=== PATIENT | female | born 1960 | race Caucasian/White ===

== ENCOUNTER 2023-07-24 10:21 | Emergency (ER) | payer MEDICARE, SELFPAY ==
--- NOTE | ~2023-07-24 | XR_ITS ---
EXAMINATION: XR chest 2V DATE: 07/24/2023 11:00 INDICATION: Shortness of breath and cough TECHNIQUE: PA and lateral views of the chest are obtained. COMPARISON: None available FINDINGS: There are minimal airspace opacities in the medial aspect of the right lung base. There are small pleural effusions. The cardiomediastinal silhouette is normal. There is moderate thoracic spon dylosis. IMPRESSION: 1. Right basilar airspace opacities, consistent with atelectasis versus pneumonia. 2. Small pleural effusions. Reviewed, dictated and finalized at location L. [employer] IMPRESSION: 1. Right basilar airspace opacities, consistent with atelectasis versus pneumon ia. 2. Small pleural effusions.
--- NOTE | 2023-07-24 10:22 | ED.UPPEXIN ---
HPI - Extremity Injury (Upper) General Chief Complaint: Upper Respiratory Infection Stated Complaint: Shortness of Breath/Cough/Body Ache Time Seen by Provider: 07/24/23 10:35 Source: patient, RN notes reviewed and old records reviewed Mode of arrival: ambulatory Limitations: no limitations History of Present Illness HPI narrative: 63-year-old female presents to the [facility] with complaints of shortness of breath, cough, body aches since Friday night, 2 days ago. Reports an home negative COVID test yesterday Patient reports that she see a log grader 2-3 weeks ago and had a completely negative workup with an echo, EKG Has a history diabetes, high blood pressure, high cholesterol Patient is a smoker. Related Data Home Medications Medication Instructions Recorded Confirmed atenolol 25 mg tablet 25 mg PO DAILY 07/24/23 07/24/23 canagliflozin 100 mg tablet 100 mg PO DAILY 07/24/23 07/24/23 (Invokana) cyclobenzaprine 10 mg tablet 10 mg PO BID 07/24/23 07/24/23 lisinopril 10 mg tablet 10 mg PO DAILY 07/24/23 07/24/23 metformin 500 mg tablet 100 mg PO BID 07/24/23 07/24/23 rosuvastatin 10 mg tablet 10 mg PO DAILY 07/24/23 07/24/23 trazodone 50 mg tablet 50 mg PO HS 07/24/23 07/24/23 Allergies Allergy/AdvReac Type Severity Reaction Status Date / Time prednisone Allergy Severe SUICIDAL Verified 11/01/15 11:10 Sulfa (Sulfonamide Allergy Mild Rash Unverified 11/23/08 13:37 Antibiotics) iodine Allergy Unknown RASH, Unverified 11/23/08 13:37 ITCHEY Review of Systems Review of Systems: All systems reviewed & are unremarkable except as noted in HPI and below Constitutional: Constitutional: Reports no additional constitutional complaints Eyes: Eyes: Reports no additional eye complaints ENT: Reports system reviewed and no additional complaints, except as documented Cardiovascular: Cardiovascular: Reports no additional cardiovascular complaints, Denies chest pain and Denies dyspnea Respiratory: Respiratory: Reports as per HPI, Reports chest congestion, Reports cough and Reports dyspnea Gastrointestinal: Gastrointestinal: Reports no additional gastrointestinal complaints, Denies abdominal pain, Denies nausea and Denies vomiting Musculoskeletal: Musculoskeletal: Reports no additional musculoskeletal complaints Integumentary/Breasts: Skin/Breast: Reports system reviewed and no additional complaints, except as docu Neurologic: Reports system reviewed and no additional complaints, except as documented Psychiatric: Psychiatric: Reports no additional psychiatric complaints Allergic/Immunologic: Allergic/Immunologic: Reports no additional allergic/immunologic complaints PMFSH Past Medical History Medical History High cholesterol History of high blood pressure Comments At the time of my signature, I reviewed and agree with the nursing past medical, surgical, social, and family history. There is no relevant family history pertinent to the patient complaint. Exam Const: General: cooperative, healthy appearing, comfortable, no acute distress, well developed, alert and well nourished Nutritional Appearance: well nourished Orientation/consciousness: patient oriented x3 Limitations: no limitations HENMT: Head: normal to inspection Ears: hearing grossly normal bilaterally, external ears normal, TM's normal bilaterally, EAC's normal, mastoids normal and no periauricular adenopathy Face/Nose/Sinus: Normal external nose present, Normal nares present, Normal nasal mucous membranes and turbinates present, normal facial exam and face symmetric Face and sinus: normal facial exam and face symmetric Mouth: Yes Normal oral and palatal mucosa present, Yes lip normal, Yes tongue normal and Yes moist mucous membranes Throat: posterior oropharynx normal, uvula midline and postnasal drainage Eyes: General: appearance normal, both eyes and all related structures Alignment and P
[2023-07-24 10:30] VITALS: BP 95/56; PULSE 83; RESP 16; TEMP 37.3; O2SAT 90
--- NOTE | 2023-07-24 11:00 | ECG_ITS ---
Measurements Intervals Myra Rate: 73 P: 61 DE: 171 QRS: 26 QRSD: 82 T: 78 QT: 375 QTc: 414 Interpretive Statements SINUS RHYTHM OTHERWISE NORMAL ECG NO PREVIOUS ECG AVAILABLE FOR COMPARISON Electronically Signed On 07-24-2023 14:06:33 [employer] by John Carroll M.D.
[2023-07-24 11:17] VITALS: BP 118/65; PULSE 74; RESP 18; O2SAT 93
== END 2023-07-24 11:22 | disposition home or self-care (01) ==
PROVIDERS: Emergency Provider Nurse Practitioner; PCP Internal Medicine
DX: J18.9 Pneumonia, unspecified organism (principal); Z79.899 Other long term (current) drug therapy
CPT/HCPCS: 71046; 87804; 93005; 99213; G0463

== ENCOUNTER 2023-10-14 08:39 | Outpatient (CLI) | payer MEDICARE, SELFPAY ==
--- NOTE | ~2023-10-14 | DEXA_ITS ---
Bone Density Report Name: ANUP SHAIKH Age: 63 Sex: Female Ethnicity: White Date of : 1960 Indication: postmenopausal; screening for osteoporosis; height loss; seizure disorder; hysterectomy; Referring Provider: LILA FERREIRA Study: Bone densitometry was performed. Exam Date: October 14, 2023 Accession number: [id number] Bone Density: Region BMD T-score Z-score Classification AP Spine(L1-L4) 1.063 0.1 1.9 Normal Femoral Neck (Left) 0.775 -0.7 0.9 Normal Total Hip (Left) 0.906 -0.3 1.0 Normal Femoral Neck (Right) 0.751 -0.9 0.6 Normal Total Hip (Right) 0.863 -0.6 0.6 Normal Total Hip Mean 0.885 -0.5 0.8 Normal World Health Organization criteria for BMD impression classify patients as: Normal (T-score at or above -1.0), Osteopenia (T-score between -1.0 and -2.5), or Osteoporosis (T-score at or below -2.5). 10-year Fracture Risk: FRAX not reported because: All T-scores for Spine Total, Hip Total, Femoral Neck at or above -1.0 Clinical Information Provided by Patient: Smokes Has used the following medications: Vitamin D Has the following medical conditions: Any Seizure Disorders, Hysterectomy Patient maximum height was 66 No regular weight bearing exercise Drinks caffeinated beverages Onset of menses at age 10 Number of children 2 Impression: The patient has normal bone mass. The patient has risk factors, including: smoking. Discussion: BONE DENSITY IS ABOVE THE MINIMUM DESIRABLE LEVEL AT ALL SKELETAL SITES TESTED. This patient?s bone mineral density is above the minimum desirable level (T-score -1.0 or better) at all sites measured. The patient should follow a healthful lifestyle (good nutrition with adequate calcium and vitamin D, and appropriate weight-bearing exercise). Follow-Up: Consider repeating this study in 5 years or sooner if there is some new clinical indication. Reported by: CHANDLER on 10/14/2023 9:21:00 AM. Reviewed, dictated and finalized at location ANestor YI
== END 2023-10-14 08:40 | disposition home or self-care (01) ==
PROVIDERS: PCP Internal Medicine; Visit Provider Internal Medicine Endocrinology, Diabetes & Metabolism
DX: Z78.0 Asymptomatic menopausal state (principal); E05.90 Thyrotoxicosis, unspecified without thyrotoxic crisis or storm
CPT/HCPCS: 77080

== ENCOUNTER 2024-05-30 12:32 | Emergency (ER) | payer MEDICARE, SELFPAY ==
--- NOTE | ~2024-05-30 | XR_ITS ---
Clinical Indication: Cough PA and lateral views of the chest: Comparison: 07/24/2023 Findings: The lungs are clear, without evidence of focal consolidation or pleural effusion. Cardiome diastinal silhouette is within normal limits. Bones and soft tissues are unremarkable. Impression: Normal chest. Reviewed, dictated and finalized at location . Impression: Normal chest.
[2024-05-30 12:36] VITALS: BP 115/55; PULSE 64; RESP 18; TEMP 36.9; O2SAT 98
--- NOTE | 2024-05-30 13:35 | ED.GENADULT ---
HPI - General Adult General Chief complaint: Upper Respiratory Infection Stated complaint: fatigue/congestion/fever Source: patient Mode of arrival: ambulatory Limitations: no limitations History of Present Illness HPI narrative: Pt presents for evaluation of sick symptoms for the past week. Her initial symptom was sinus congestion. She has since developed postnasal drainage, a scratchy throat cough and some OSORIO. No fever, chills, nausea, vomiting or diarrhea. 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 She smokes between 08/14-08/12 ppd. She is not taking any medications to assist with her symptoms. Related Data Home Medications Medication Instructions Recorded Confirmed atenolol 25 mg tablet 25 mg PO DAILY 07/24/23 08/12/23 canagliflozin 100 mg tablet 100 mg PO DAILY 07/24/23 08/12/23 (Invokana) cyclobenzaprine 10 mg tablet 10 mg PO BID 07/24/23 08/12/23 lisinopril 10 mg tablet 10 mg PO DAILY 07/24/23 08/12/23 rosuvastatin 10 mg tablet 10 mg PO DAILY 07/24/23 07/24/23 trazodone 50 mg tablet 50 mg PO HS 07/24/23 08/12/23 aspirin 81 mg tablet,delayed 81 mg PO DAILY 08/12/23 08/12/23 release (Adult Low Dose Aspirin) cetirizine 10 mg capsule (Zyrtec) 10 mg PO DAILY PRN 08/12/23 08/12/23 cholecalciferol (vitamin D3) PO 08/12/23 08/12/23 magnesium chloride PO 08/12/23 08/12/23 metformin 500 mg tablet 1,000 mg PO BID 08/12/23 08/12/23 multivitamin (Daily Multi-Vitamin 1 tablet PO DAILY 08/12/23 08/12/23 tablet) vitamin B complex PO 08/12/23 08/12/23 Allergies Allergy/AdvReac Type Severity Reaction Status Date / Time prednisone Allergy Severe SUICIDAL Verified 08/12/23 14:32 Sulfa (Sulfonamide Allergy Mild Rash Verified 08/12/23 14:32 Antibiotics) iodine Allergy Unknown RASH, Verified 08/12/23 14:32 ITCHEY Review of Systems Review of Systems: CONSTITUTIONAL: Denies fever, chills, or sweats. EYES: Denies visual changes, redness, or discharge. ENT:Reports a scratchy throat , sinus congestion, and postnasal drainage. Denies otalgia. CARDIOVASCULAR: Denies chest pain, palpitations, or edema. RESPIRATORY: Reports cough and OSORIO GASTROINTESTINAL: Denies abdominal pain, nausea, vomiting, or diarrhea. GENITOURINARY: Denies dysuria or hematuria. SKIN: Denies rash or itching. MUSCULOSKELETAL: Denies back pain, joint pain, or myalgia. NEUROLOGIC: Denies headache, numbness, dizziness, or weakness. PSYCHIATRIC: Denies anxiety or depression. [facility] Past Medical History Medical History Diabetes High cholesterol History of high blood pressure Surgical History Surgical History No pertinent past surgical history Family History Family History Mother Family history non-contributory Social History Social History Smoking packs per day: 0.3 Smoking cigarettes per day: 6.0 Smoking status: Current every day smoker Alcohol intake: current Alcohol use details: 1 drink per year Substance use: never Living arrangements: with family Gender identity (if verbalized by the patient): Female Exam Narrative: GENERAL: Well-appearing, well-nourished, and in no acute distress. HEAD: Normocephalic, atraumatic. EYES: PERRLA and EOMI. ENT: Nares clear, no rhinorrhea or epistaxis. Mucous membranes moist. Oropharynx without tonsillar hypertrophy exudate or other lesions. Bilateral TMs pearly moss nonbulging NECK: Supple. No adenopathy or masses. No carotid bruits or JVD CHEST: Clear to auscultation. No respiratory distress. No wheezes rales or rhonchi HEART: Regular rate and rhythm. No murmur heard. Normal peripheral pulses. ABDOMEN: Soft, nontender, nondistended, normal active bowel sounds. EXTR
[2024-05-30 13:57] LABS: EDINFLUASCREEN Negative (Negative); EDINFLUBSCREEN Negative (Negative)
== END 2024-05-30 14:12 | disposition home or self-care (01) ==
PROVIDERS: Emergency Provider Nurse Practitioner; PCP Internal Medicine
DX: J06.9 Acute upper respiratory infection, unspecified (principal); F17.210 Nicotine dependence, cigarettes, uncomplicated; E11.9 Type 2 diabetes mellitus without complications; I10 Essential (primary) hypertension
CPT/HCPCS: 71046; 87804; 99213; G0463

== ENCOUNTER 2024-06-04 16:42 | Emergency (ER) | payer MEDICARE, SELFPAY ==
[2024-06-04 16:47] VITALS: BP 143/64; PULSE 66; RESP 18; TEMP 36.9; O2SAT 95
--- NOTE | 2024-06-04 17:15 | ED_ITS ---
HPI - URI/Sore Throat General Chief Complaint: Upper Respiratory Infection Stated Complaint: Shortness of breath Time Seen by Provider: 06/04/24 17:15 Source: patient Mode of arrival: ambulatory Limitations: no limitations History of Present Illness HPI Narrative: 64 yo F presents with c/o cough, chest congestion for 2 wks. Was seen here 1 wk ago, had negative chest x-ray. was given tessalon pearle and taking mucinex DM. Pt c/o SOB with exertion, chest tightness, wheezing. pt is current everyday smoker. Afebrile. All systems reviewed and negative except as noted above. Related Data Home Medications Medication Instructions Recorded Confirmed atenolol 25 mg tablet 25 mg PO DAILY 07/24/23 06/04/24 canagliflozin 100 mg tablet 100 mg PO DAILY 07/24/23 08/12/23 (Invokana) cyclobenzaprine 10 mg tablet 10 mg PO BID 07/24/23 06/04/24 lisinopril 10 mg tablet 10 mg PO DAILY 07/24/23 06/04/24 rosuvastatin 10 mg tablet 10 mg PO DAILY 07/24/23 06/04/24 trazodone 50 mg tablet 50 mg PO HS 07/24/23 06/04/24 aspirin 81 mg tablet,delayed 81 mg PO DAILY 08/12/23 06/04/24 release (Adult Low Dose Aspirin) cetirizine 10 mg capsule (Zyrtec) 10 mg PO DAILY PRN Allergic 08/12/23 06/04/24 Symptoms cholecalciferol (vitamin D3) PO 08/12/23 08/12/23 magnesium chloride PO 08/12/23 08/12/23 metformin 500 mg tablet 1,000 mg PO BID 08/12/23 06/04/24 multivitamin (Daily Multi-Vitamin 1 tablet PO DAILY 08/12/23 08/12/23 tablet) vitamin B complex PO 08/12/23 08/12/23 Allergies Allergy/AdvReac Type Severity Reaction Status Date / Time prednisone Allergy Severe SUICIDAL Verified 06/04/24 17:04 Sulfa (Sulfonamide Allergy Mild Rash Verified 06/04/24 17:04 Antibiotics) iodine Allergy Unknown RASH, Verified 06/04/24 17:04 ITCHEY Review of Systems Review of Systems: CONSTITUTIONAL: Denies fever, chills, or sweats. EYES: Denies visual changes, redness, or discharge. ENT: Denies rhinorrhea, congestion, sore throat, or otalgia. CARDIOVASCULAR: Denies chest pain, palpitations, or edema. RESPIRATORY: Reports cough , chest congestion, dyspnea with exertion. GASTROINTESTINAL: Denies abdominal pain, nausea, vomiting, or diarrhea. GENITOURINARY: Denies dysuria or hematuria. SKIN: Denies rash or itching. MUSCULOSKELETAL: Denies back pain, joint pain, or myalgia. NEUROLOGIC: Denies headache, numbness, or weakness. PSYCHIATRIC: Denies anxiety or depression. All other systems reviewed are negative, except as documented in HPI. [facility] Past Medical History Medical History Diabetes High cholesterol History of high blood pressure Surgical History Surgical History No pertinent past surgical history Family History Family History Mother Family history non-contributory Social History Social History Smoking packs per day: 0.3 Smoking cigarettes per day: 6.0 Smoking status: Current every day smoker Alcohol intake: current Alcohol use details: 1 drink per year Substance use: never Living arrangements: with family Gender identity (if verbalized by the patient): Female Comments At time of signature, agree with nursing past medical, surgical, social and family history. There is no relevant family history pertinent to the presenting complaint. Exam Narrative: GENERAL: This is a well-nourished, well-developed patient, in no apparent distress. HEAD: normocephalic, atraumatic. EYES: PERRL. Sclera clear/white. Vision is grossly intact. EARS: External ears normal, auditory canals clear and without drainage, TMs normal without perforation. Hearing grossly intact. NOSE: External nose normal with no obvious nasal discharge, nares without redness, no rhinorrhea. THROAT: Mucous membranes moist, posterior pharynx clear. NECK: Neck supple, non-tender without lymphadenopathy, masses or thyromegaly. CARDIOVASCULAR: Regular rate and rhythm without murmurs, gallops, or rubs. RESPIRATORY: decreased throughout all lung alfaro, mild expiratory wheeze upper lung alfaro. SKIN: warm, Dry, intact with no suspicious lesions or rash, good texture and turgor. NEURO: awake, alert, and oriented to person, place and time. There were no obvious focal neurologic abnormalities. EXTREMITIES: No joint tenderness, effusion, or edema noted. Course Course [facility] Care: [facility] Visit Vital Signs Vital signs: Vital Signs Temperature 36.9 C 06/04/24 16:47 Pulse Rate 66 06/04/24 16:47 Respiratory Rate 18 06/04/24 16:47 Blood Pressure 143/64 H 06/04/24 16:47 Pulse Oximetry 95 06/04/24 16:47 Oxygen Delivery Room Air 06/04/24 16:47 Temperature 36.9 C 06/04/24 16:47 Pulse Rate 66 06/04/24 16:47 Respiratory Rate 18 06/04/24 16:47 Blood Pressure 143/64 H 06/04/24 16:47 Pulse Oximetry 95 06/04/24 16:47 Oxygen Delivery Room Air 06/04/24 16:47 Reviewed MDM - URI/Sore Throat MDM Narrative Medical decision making narrative: Patient is aware of diagnosis, understands and agrees to treatment plan. Anticipatory guidance given. Patient agrees to follow-up as directed and is aware of reasons to seek care at the emergency department. Portions of this record may have been created with voice recognition software patient had [facility]. Was negative for pneumonia. will treat today with antibiotic due to 2 week duration of symptoms. patient states she is not allergic to prednisone but had bad interaction with her Cymbalta. A Steroid would benefit for her at this time so we will try QVAR. Patient agrees with plan of care. Discharge Plan Discharge Clinical Impression: Acute bronchitis Patient Disposition: Home, Self-Care Condition: Stable Instructions: Antibiotic Form Additional Instructions: Take medications as prescribed. Continue taking [id number] Mucinex as directed on packaging. Take ibuprofen or Tylenol every 6-8 hours as needed for pain. Drink at least 64 oz of water a day. For any worsening of symptoms, difficulty breathing go to the ER. Prescriptions: New Qvar RediHaler 80 mcg/actuation HFA aerosol breath activated 2 inh inhalation Q12H Qty: 10.6 0RF doxycycline hyclate 100 mg capsule 100 mg PO BID 7 Days Qty: 14 0RF benzonatate 200 mg capsule 200 mg PO TID PRN (Reason: cough) Qty: 20 0RF albuterol sulfate 90 mcg/actuation HFA aerosol inhaler 2 puff inhalation Q4-6H PRN (Reason: shortness of breath or wheezing) Qty: 8.5 0RF No Action cyclobenzaprine 10 mg tablet 10 mg PO BID atenolol 25 mg tablet 25 mg PO DAILY Invokana 100 mg tablet 100 mg PO DAILY trazodone 50 mg tablet 50 mg PO HS lisinopril 10 mg tablet 10 mg PO DAILY rosuvastatin 10 mg tablet 10 mg PO DAILY metformin 500 mg tablet 1,000 mg PO BID benzonatate 100 mg capsule 100 - 200 mg PO TID PRN (Reason: cough) Qty: 30 0RF aspirin [Adult Low Dose Aspirin] 81 mg tablet,delayed release (DR/EC) 81 mg PO DAILY Zyrtec 10 mg capsule 10 mg PO DAILY PRN (Reason: Allergic Symptoms) magnesium chloride PO vitamin B complex PO cholecalciferol (vitamin D3) PO multivitamin [Daily Multi-Vitamin] Tablet 1 tablet PO DAILY Follow-up/Referrals: Penny,MD Kirit [Primary Care Provider] - Time of Disposition: 17:58
[2024-06-04] MEDS: IPRATROPIUM 0.5 MG/ALBUTEROL SULFATE 2.5 MG AMPUL.NEB 3 ML INHALATION (17:27)
[2024-06-04 17:58] VITALS: PULSE 76; RESP 24; O2SAT 95
== END 2024-06-04 18:06 | disposition home or self-care (01) ==
PROVIDERS: Emergency Provider Nurse Practitioner Family; PCP Internal Medicine
DX: J20.9 Acute bronchitis, unspecified (principal); F17.210 Nicotine dependence, cigarettes, uncomplicated; E11.9 Type 2 diabetes mellitus without complications; E78.00 Pure hypercholesterolemia, unspecified; I10 Essential (primary) hypertension; Z79.84 Long term (current) use of oral hypoglycemic drugs; Z79.82 Long term (current) use of aspirin
CPT/HCPCS: 99213; G0463

== ENCOUNTER 2024-10-11 10:43 | Emergency (ER) | payer MEDICARE, SELFPAY ==
[2024-10-11 10:46] VITALS: BP 129/59; PULSE 78; RESP 20; TEMP 36.8; O2SAT 100
[2024-10-11 11:01] LABS: EDUAAPPEAR Cloudy; EDUABILI Negative (Negative); EDUABLOOD Trace (Negative); EDUACOLOR1 Yellow; EDUAGLUCOSE Negative (Negative); EDUAKETONE Negative (Negative); EDUALEUKO 1+ (Negative); EDUANITRATE Positive (Negative); EDUAPH 6.5; EDUAPROTEIN 2+ (Negative)
--- NOTE | 2024-10-11 11:01 | ED.GENADULT ---
HPI - General Adult General Chief complaint: Urogenital-Female Stated complaint: poss UTI Source: patient and RN notes reviewed Mode of arrival: ambulatory Limitations: no limitations History of Present Illness HPI narrative: 64-year-old female with history of diabetes presented for complaint of mid lower abdominal pain, dysuria, and urinary frequency. Onset yesterday. Endorses vomiting 2 days ago, none since. denies hematuria, flank pain, constipation, diarrhea, fevers or chills. no meds for symptoms. Related Data Home Medications ?Medication ?Instructions ?Recorded ?Confirmed ?Last Taken ?Type atenolol 25 mg tablet 25 mg PO DAILY 07/24/23 09/01/24 Unknown History canagliflozin 100 mg tablet 100 mg PO DAILY 07/24/23 09/01/24 Unknown History (Invokana) cyclobenzaprine 10 mg tablet 10 mg PO BID 07/24/23 09/01/24 Unknown History lisinopril 10 mg tablet 10 mg PO DAILY 07/24/23 09/01/24 Unknown History rosuvastatin 10 mg tablet 10 mg PO DAILY 07/24/23 09/01/24 Unknown History trazodone 50 mg tablet 50 mg PO HS 07/24/23 09/01/24 Unknown History aspirin 81 mg tablet,delayed 81 mg PO DAILY 08/12/23 09/01/24 Unknown History release (Adult Low Dose Aspirin) cetirizine 10 mg capsule (Zyrtec) 10 mg PO DAILY PRN Allergic 08/12/23 09/01/24 Unknown History Symptoms cholecalciferol (vitamin D3) PO 08/12/23 09/01/24 Unknown History magnesium chloride PO 08/12/23 09/01/24 Unknown History metformin 500 mg tablet 1,000 mg PO BID 08/12/23 09/01/24 Unknown History multivitamin (Daily Multi-Vitamin 1 tablet PO DAILY 08/12/23 09/01/24 Unknown History tablet) vitamin B complex PO 08/12/23 09/01/24 Unknown History Allergies Allergy/AdvReac Type Severity Reaction Status Date / Time prednisone Allergy Severe SUICIDAL Verified 09/01/24 14:40 Sulfa (Sulfonamide Allergy Mild Rash Verified 09/01/24 14:40 Antibiotics) iodine Allergy Unknown RASH, Verified 09/01/24 14:40 ITCHEY doxycycline Allergy Rash Verified 09/01/24 14:40 Review of Systems Review of Systems: CONSTITUTIONAL: Denies body aches, fever, chills, or sweats. CARDIOVASCULAR: Denies chest pain, palpitations, or edema. RESPIRATORY: Denies cough or dyspnea. GASTROINTESTINAL: Denies nausea, vomiting, or diarrhea. GENITOURINARY: Reports dysuria, frequency, urgency, denies hematuria, flank pain SKIN: Denies rash, itching, or wounds. MUSCULOSKELETAL: Denies back pain or myalgia. [facility] Past Medical History Medical History Diabetes High cholesterol History of high blood pressure Surgical History Surgical History No pertinent past surgical history Family History Family History Mother Family history non-contributory Social History Social History Smoking packs per day: 0.3 Smoking cigarettes per day: 6.0 Smoking status: Current every day smoker Alcohol intake: current Alcohol use details: 1 drink per year Substance use: never Living arrangements: with family Gender identity (if verbalized by the patient): Female Comments At time of signature, I have reviewed and agree with nursing past medical, surgical, social and family history unless otherwise noted. Please see nursing chart for further information. There is no relevant family history pertinent to the presenting complaint Exam Narrative: GENERAL: Well-appearing and in no acute distress. HEAD: Normocephalic EYES: EOMI. . ENT: Mucous membranes pink and moist. NECK: Normal AROM. Supple. CHEST: No respiratory distress. Clear to auscultation. HEART: Regular rate and rhythm. ABDOMEN: Soft, mild suprapubic tenderness, nondistended, normal active bowel sounds. No CVA tenderness SKIN: Warm, dry, no rash. NEURO: No focal deficits. Alert and oriented x3. Gait steady. PSYCH: Normal affect. No signs of depression or anxiety. Course Course Emergency Course: Patient is aware of diagnosis, understands and agrees to treatment plan. Anticipatory guidance given. Patient agrees to follow-up as directed and is aware of reasons to seek care at the emergency department. Portions of this record may have been created with voice recognition software Level of Care: [facility] Visit Vital Signs Vital signs: Vital Signs Temperature 98.2 F 10/11/24 10:46 Pulse Rate 78 10/11/24 10:46 Respiratory Rate 20 10/11/24 10:46 Blood Pressure 129/59 L 10/11/24 10:46 Pulse Oximetry 100 10/11/24 10:46 Oxygen Delivery Room Air 10/11/24 10:46 Temperature 98.2 F 10/11/24 10:46 Pulse Rate 78 10/11/24 10:46 Respiratory Rate 20 10/11/24 10:46 Blood Pressure 129/59 L 10/11/24 10:46 Pulse Oximetry 100 10/11/24 10:46 Oxygen Delivery Room Air 10/11/24 10:46 Reviewed Medical Decision Making MDM Narrative Medical decision making narrative: Discussed physical exam findings, will culture urine. Advised supportive measures and signs/symptoms to go to the ER. Pt is appropriate for outpt treatment and f/u. Differential Diagnosis Differential Diagnosis: UTI, cystitis, vaginitis, nephrolithiasis Vital Signs Vital Signs: Vital Signs Temperature 98.2 F 10/11/24 10:46 Pulse Rate 78 10/11/24 10:46 Respiratory Rate 20 10/11/24 10:46 Blood Pressure 129/59 L 10/11/24 10:46 Pulse Oximetry 100 10/11/24 10:46 Oxygen Delivery Room Air 10/11/24 10:46 Temperature 98.2 F 10/11/24 10:46 Pulse Rate 78 10/11/24 10:46 Respiratory Rate 20 10/11/24 10:46 Blood Pressure 129/59 L 10/11/24 10:46 Pulse Oximetry 100 10/11/24 10:46 Oxygen Delivery Room Air 10/11/24 10:46 Lab Data Labs: Lab Results 10/11/24 Range/Units 10:58 POC Urine Color Yellow POC Urine Clarity Cloudy POC Urine pH 6.5 POC Ur Specif Morton 1.020 POC Urine Protein 2+ (Negative) POC Ur Glucose (UA) Negative (Negative) POC Urine Ketones Negative (Negative) POC Urine Blood Trace (Negative) POC Urine Nitrite Positive (Negative) POC Urine Bilirubin Negative (Negative) POC Urine Urobilinogen 1.0 POC U Leukocyte Esteras 1+ (Negative) Discharge Plan Discharge Clinical Impression: Urinary tract infection Patient Disposition: Home, Self-Care Condition: Stable Instructions: Antibiotic Form, Urinary Tract Infection in Women (ED) Additional Instructions: Take the antibiotic as prescribed The urine will be sent of for a culture to identify what type of bacteria is causing your infection. If the culture shows that the antibiotic will not get rid of your infection, you will be notified and a new antibiotic will be called in for you. Increase water intake you will need to follow up with your PCP, call to schedule an appointment. Go to the ER for any worsening symptoms or concerns Patient Language: Mongolian Prescriptions: New nitrofurantoin monohyd/m-cryst [Macrobid] 100 mg capsule 100 mg PO Q12H 5 Days Qty: 10 0RF Rx Instructions: must administer with a meal/food No Action cyclobenzaprine 10 mg tablet 10 mg PO BID atenolol 25 mg tablet 25 mg PO DAILY Invokana 100 mg tablet 100 mg PO DAILY trazodone 50 mg tablet 50 mg PO HS lisinopril 10 mg tablet 10 mg PO DAILY rosuvastatin 10 mg tablet 10 mg PO DAILY metformin 500 mg tablet 1,000 mg PO BID Qvar RediHaler 80 mcg/actuation HFA aerosol breath activated 2 inh inhalation Q12H Qty: 10.6 0RF albuterol sulfate 90 mcg/actuation HFA aerosol inhaler 2 puff inhalation Q4-6H PRN (Reason: shortness of breath or wheezing) Qty: 8.5 0RF aspirin [Adult Low Dose Aspirin] 81 mg tablet,delayed release (DR/EC) 81 mg PO DAILY Zyrtec 10 mg capsule 10 mg PO DAILY PRN (Reason: Allergic Symptoms) magnesium chloride PO vitamin B complex PO cholecalciferol (vitamin D3) PO multivitamin [Daily Multi-Vitamin] Tablet 1 tablet PO DAILY Follow-up/Referrals: Penny,MD Kirit [Primary Care Provider] -
== END 2024-10-11 11:14 | disposition home or self-care (01) ==
PROVIDERS: Emergency Provider Nurse Practitioner Family; PCP Internal Medicine
DX: N39.0 Urinary tract infection, site not specified (principal); B96.20 Unspecified Escherichia coli [E. coli] as the cause of diseases classified elsewhere; B96.1 Klebsiella pneumoniae [K. pneumoniae] as the cause of diseases classified elsewhere; F17.210 Nicotine dependence, cigarettes, uncomplicated; E11.9 Type 2 diabetes mellitus without complications; Z79.84 Long term (current) use of oral hypoglycemic drugs; E78.00 Pure hypercholesterolemia, unspecified; I10 Essential (primary) hypertension; Z79.82 Long term (current) use of aspirin
CPT/HCPCS: 81003; 87086; 87186; 99213; G0463

== ENCOUNTER 2024-10-12 16:28 | Emergency (ER) | payer MEDICARE, SELFPAY ==
[2024-10-12 16:32] VITALS: BP 139/62; PULSE 89; RESP 20; TEMP 37.4; O2SAT 95
[2024-10-12 16:57] LABS: EDCOVIDSCREEN Negative (Negative); EDINFLUASCREEN Negative (Negative); EDINFLUBSCREEN Negative (Negative)
--- NOTE | 2024-10-12 17:12 | ED.URI ---
HPI - URI/Sore Throat General Chief Complaint: Upper Respiratory Infection Stated Complaint: upper respiratory Time Seen by Provider: 10/12/24 17:00 Source: patient, family, RN notes reviewed and old records reviewed Mode of arrival: ambulatory Limitations: no limitations History of Present Illness HPI Narrative: 64 year old female accompanied by with complaints of cough, body aches since last night. Patient states it feels like something on chest with movement and chest feels congested. Patient was seen yesterday for UTI and was placed on Macrobid. Patient reports that she thinks urinary symptoms are better. MD elicited complaint: cough, rhinorrhea and nasal congestion Pertinent past history: pneumonia and other (bronchitis) Onset (ago): day(s) (since last night) Consistency: progressively worsening Severity: moderate Pain scale (0-10): 5 Able to tolerate fluids by mouth: Yes Treatments prior to arrival: other (on Macrobid for UTI) Related Data Home Medications ?Medication ?Instructions ?Recorded ?Confirmed ?Last Taken ?Type atenolol 25 mg tablet 25 mg PO DAILY 07/24/23 09/01/24 Unknown History cyclobenzaprine 10 mg tablet 10 mg PO BID 07/24/23 09/01/24 Unknown History lisinopril 10 mg tablet 10 mg PO DAILY 07/24/23 09/01/24 Unknown History rosuvastatin 10 mg tablet 10 mg PO DAILY 07/24/23 09/01/24 Unknown History trazodone 50 mg tablet 50 mg PO HS 07/24/23 09/01/24 Unknown History aspirin 81 mg tablet,delayed 81 mg PO DAILY 08/12/23 09/01/24 Unknown History release (Adult Low Dose Aspirin) cholecalciferol (vitamin D3) PO 08/12/23 09/01/24 Unknown History magnesium chloride PO 08/12/23 09/01/24 Unknown History metformin 500 mg tablet 1,000 mg PO BID 08/12/23 09/01/24 Unknown History multivitamin (Daily Multi-Vitamin 1 tablet PO DAILY 08/12/23 09/01/24 Unknown History tablet) vitamin B complex PO 08/12/23 09/01/24 Unknown History Allergies Allergy/AdvReac Type Severity Reaction Status Date / Time prednisone Allergy Severe SUICIDAL Verified 09/01/24 14:40 Sulfa (Sulfonamide Allergy Mild Rash Verified 09/01/24 14:40 Antibiotics) iodine Allergy Unknown RASH, Verified 09/01/24 14:40 ITCHEY doxycycline Allergy Rash Verified 09/01/24 14:40 Review of Systems Review of Systems: CONSTITUTIONAL: Reports malaise, chills, sweats, low grade fevers EYES: Denies visual changes, redness, or discharge. ENT: Reports rhinorrhea, congestion, sinus pain,no otalgia and no sore throat. CARDIOVASCULAR: Denies chest pain, palpitations, or edema. RESPIRATORY: Reports cough.?states some dyspnea with exertion GASTROINTESTINAL: Denies abdominal pain, nausea, vomiting, diarrhea SKIN: Denies rash or itching. MUSCULOSKELETAL: Reports myalgia. NEUROLOGIC: Denies headache. All systems reviewed & are unremarkable except as noted in HPI and below PMFSH Past Medical History Medical History Chronic back pain Bronchitis Pneumonia Diabetes High cholesterol History of high blood pressure Surgical History Surgical History H/O tubal ligation History of hysterectomy Family History Family History Mother Family history non-contributory Social History Social History Smoking packs per day: 0.3 Smoking cigarettes per day: 6.0 Smoking status: Current every day smoker Alcohol intake: current Alcohol use details: 1 drink per year Substance use: never Living arrangements: with family Gender identity (if verbalized by the patient): Female Comments At time of signature, agree with nursing past medical, surgical, social and family history. There is no relevant family history pertinent to the presenting complaint Exam Narrative: GENERAL: ill-appearing, well-nourished, and in no acute distress. HEAD: Normocephalic EYES: PERRLA, conjunctivae clear ENT: Nares clear, turbinates edematous and erythematous, clear discharge. Mucous membranes moist. TM pearly moss with dull light reflex bilaterally; no tragal tenderness. Oropharynx erythematous without lesions. Tonsils not present and throat without exudate, no drooling, no hoarseness, no trismus, uvula midline.post nasal drainage NECK: Supple. No lymphadenopathy CHEST: crackles to bases on auscultation, breath sounds equal. No wheezing, rhonchi, +rales, no stridor. No respiratory distress, speaks in full sentences.cough present SAO2 95% on room air HEART: Regular rate and rhythm. No murmur heard. SKIN: Warm, dry, no rash. NEURO: Alert and oriented x3. PSYCH: Normal mood and affect Course Course Emergency Course: Patient is aware of diagnosis, understands and agrees to treatment plan.? Anticipatory guidance given.? Patient agrees to follow-up as directed and is aware of reasons to seek care at the emergency department. Portions of this record may have been created with voice recognition software Level of Care: [facility] Visit Vital Signs Vital signs: Vital Signs Temperature 37.4 C 10/12/24 16:32 Pulse Rate 89 10/12/24 16:32 Respiratory Rate 20 10/12/24 16:32 Blood Pressure 139/62 10/12/24 16:32 Pulse Oximetry 95 10/12/24 16:32 Oxygen Delivery Room Air 10/12/24 16:32 Temperature 37.4 C 10/12/24 16:32 Pulse Rate 89 10/12/24 16:32 Respiratory Rate 20 10/12/24 16:32 Blood Pressure 139/62 10/12/24 16:32 Pulse Oximetry 95 10/12/24 16:32 Oxygen Delivery Room Air 10/12/24 16:32 Reviewed MDM - URI/Sore Throat MDM Narrative Medical decision making narrative: Differential diagnosis considered: Matos virus, strep pharyngitis, allergic rhinitis, upper respiratory tract infection, sinusitis, rhinosinusitis, nasopharyngitis. viral pharyngitis, otitis media, otitis externa, pneumonia, bronchitis, viral cough syndrome, viral syndrome, and influenza.? Exam findings show no acute concerns or changes; patient is non-toxic appearing and is in no distress.? Patient is appropriate for outpatient treatment and follow-up. Differential Diagnosis Differential diagnosis: Likely upper respiratory infection, viral infection, bronchitis, influenza and other (COVID, pneumonia, acute cough) Medical Records Attestation: I reviewed the patient's medical records. Lab Data Attestation: I reviewed the patient's lab results. Lab results narrative: influenza A negative, Influenza B negative, COVID antigen negarive Labs: Lab Results 10/12/24 Range/Units 16:55 POC Influenza A Ag Negative (Negative) POC Influenza B Ag Negative (Negative) POC SARS CoV-2 Ag Negative (Negative) reviewed Imaging Data Attestation: I personally reviewed and interpreted this imaging study as follows: My impression: atelectasis at left lung base Radiologist's impression: [facility] [address] [place] [address] XRay Report Signed Patient: Lucrecia Oswald : 1960 MR#: [id number] Age: 64 Acct:[id number] Loc: [facility] ADM Date: 10/12/24Attending Dr: Ordering Physician: Abimbola Silva APRN Date of Service: 10/12/24 Procedure(s): XR chest 2V Accession Number(s): [id number] cc: Abimbola Silva APRN~ EXAMINATION: XR chest 2V DATE: 10/12/2024 17:10 INDICATION: Cough and congestion. TECHNIQUE: Frontal and lateral views of the chest were obtained. COMPARISON: Chest 2 views 05/30/2024 FINDINGS: There is mild atelectasis at left lung base. No pleural effusion or pneumothorax. The heart size is normal. IMPRESSION: 1. Mild atelectasis at left lung base. Reviewed, dictated and finalized at location A. NISHER Please be advised this is a medical document. It is intended for [id number] communication. It is written in medical language and may contain unfamiliar abbreviations or verbiage. Medical documents are intended to carry relevant information, facts as evident, and the clinical opinion of the practitioner at the time of the encounter. This report may have been done utilizing a voice recognition system. Attempts have been made to correct errors. However, there may be uncorrected grammatical, spelling, and recognition errors present. The file time of this note does not necessarily represent the time of service. Dictated By: Satinder Bellamy MD 10/12/24 1713 Signed By: <Electronically signed by Satinder Bellamy MD in OV> Critical Care Time Critical Care Time Critical Care Time: No Discharge Plan Discharge Clinical Impression: Acute bronchitis Qualifiers: Bronchitis organism: unspecified organism Qualified Code(s): J20.9 - Acute bronchitis, unspecified Patient Disposition: Home, Self-Care Condition: Stable Instructions: Antibiotic Form, Azithromycin (By mouth) Additional Instructions: Increase fluids especially juices and water [id number] cough and cold medicine of your choice for your symptoms Zyrtec,Claritin or Linda daily Continue your inhaler/nebulizer as directed Steroids as directed--take with food heat to the face 20-30 minutes 4-6 times a day for pain Salt water gargles, throat lozenges or throat sprays as desired Antibiotic as directed--finished the medication If your symptoms persist, change or worsen significantly before you can contact your personal physician then please, without delay, go to the emergency department for further evaluation. Follow-up with PCP in 7-10 days or sooner if needed Follow up with PCP soon in regards to your blood pressure which is elevated above threshold for referral. Blood pressure above 120/80 may indicate pre-hypertension. 139/62 Patient Language: Cook Islander Prescriptions: New albuterol sulfate [Ventolin HFA] 90 mcg/actuation HFA aerosol inhaler 2 puff inhalation QID PRN (Reason: shortness of breath or wheezing) Qty: 6.7 0RF prednisone 20 mg tablet 40 mg PO DAILY 5 Days Qty: 10 0RF azithromycin 250 mg tablet See Rx Instructions .ROUTE .COMPLEX Qty: 6 0RF Rx Instructions: For 250 mg dose pack: take 500 mg today (day 1), then 250 mg for 4 days (days 2-5) No Action cyclobenzaprine 10 mg tablet 10 mg PO BID atenolol 25 mg tablet 25 mg PO DAILY trazodone 50 mg tablet 50 mg PO HS lisinopril 10 mg tablet 10 mg PO DAILY rosuvastatin 10 mg tablet 10 mg PO DAILY metformin 500 mg tablet 1,000 mg PO BID Qvar RediHaler 80 mcg/actuation HFA aerosol breath activated 2 inh inhalation Q12H Qty: 10.6 0RF nitrofurantoin monohyd/m-cryst [Macrobid] 100 mg capsule 100 mg PO Q12H 5 Days Qty: 10 0RF Rx Instructions: must administer with a meal/food aspirin [Adult Low Dose Aspirin] 81 mg tablet,delayed release (DR/EC) 81 mg PO DAILY magnesium chloride PO vitamin B complex PO cholecalciferol (vitamin D3) PO multivitamin [Daily Multi-Vitamin] Tablet 1 tablet PO DAILY Follow-up/Referrals: PHYSICIAN NOT ON STAFF,NONSTAFF [Primary Care Provider] - Stand Alone Forms: Work/School Release IP Time of Disposition: 17:42 Quality Cassandra Coma Scale Eyes: Open Verbal: Oriented and Alert Motor: Follows Commands Brave Coma Total Score: 15
== END 2024-10-12 17:49 | disposition home or self-care (01) ==
PROVIDERS: Emergency Provider Registered Nurse
DX: J20.9 Acute bronchitis, unspecified (principal); E11.9 Type 2 diabetes mellitus without complications; E78.00 Pure hypercholesterolemia, unspecified; F17.210 Nicotine dependence, cigarettes, uncomplicated; Z20.822 Contact with and (suspected) exposure to COVID-19
CPT/HCPCS: 71046; 87426; 87804; 99213; G0463

== ENCOUNTER 2025-02-07 10:20 | Emergency (ER) | payer MEDICARE, SELFPAY ==
[2025-02-07 10:26] VITALS: BP 124/60; PULSE 70; RESP 20; TEMP 36.7; O2SAT 96
--- NOTE | 2025-02-07 11:12 | ED.URI ---
HPI - URI/Sore Throat General Chief Complaint: Upper Respiratory Infection Stated Complaint: Sore Throat/Eye Problem Time Seen by Provider: 02/07/25 11:12 Source: patient and RN notes reviewed Mode of arrival: ambulatory Limitations: no limitations History of Present Illness HPI Narrative: 64-year-old female presents with concern for nasal congestion, drainage, sore throat, swollen glands, ear pressure and runny nose. She reports symptoms started more than a week ago, she has chronic sinus problems. She reports today she woke up with her right eye red, draining and matted. Reports her left eye is beginning to be that way. She takes Tylenol and Mucinex. MD elicited complaint: nasal congestion Related Data Home Medications ?Medication ?Instructions ?Recorded ?Confirmed ?Last Taken ?Type atenolol 25 mg tablet 25 mg PO DAILY 07/24/23 09/01/24 Unknown History cyclobenzaprine 10 mg tablet 10 mg PO BID 07/24/23 09/01/24 Unknown History lisinopril 10 mg tablet 10 mg PO DAILY 07/24/23 09/01/24 Unknown History rosuvastatin 10 mg tablet 10 mg PO DAILY 07/24/23 09/01/24 Unknown History trazodone 50 mg tablet 50 mg PO HS 07/24/23 09/01/24 Unknown History aspirin 81 mg tablet,delayed 81 mg PO DAILY 08/12/23 09/01/24 Unknown History release (Adult Low Dose Aspirin) cholecalciferol (vitamin D3) PO 08/12/23 09/01/24 Unknown History magnesium chloride PO 08/12/23 09/01/24 Unknown History metformin 500 mg tablet 1,000 mg PO BID 08/12/23 09/01/24 Unknown History multivitamin (Daily Multi-Vitamin 1 tablet PO DAILY 08/12/23 09/01/24 Unknown History tablet) vitamin B complex PO 08/12/23 09/01/24 Unknown History Allergies Allergy/AdvReac Type Severity Reaction Status Date / Time prednisone Allergy Severe SUICIDAL Verified 09/01/24 14:40 Sulfa (Sulfonamide Allergy Mild Rash Verified 09/01/24 14:40 Antibiotics) iodine Allergy Unknown RASH, Verified 09/01/24 14:40 ITCHEY doxycycline Allergy Rash Verified 09/01/24 14:40 Review of Systems Review of Systems: CONSTITUTIONAL: Denies malaise, chills, sweats, or fever. EYES: Denies visual changes. Reports bilateral redness, itchiness, discharge worse on the right ENT: Reports rhinorrhea, congestion, sinus pain, otalgia and sore throat. CARDIOVASCULAR: Denies chest pain, palpitations, or edema. RESPIRATORY: Reports cough. Denies dyspnea. GASTROINTESTINAL: Denies abdominal pain, nausea, vomiting, diarrhea SKIN: Denies rash or itching. MUSCULOSKELETAL: Denies myalgia. NEUROLOGIC: Denies headache. All systems reviewed & are unremarkable except as noted in HPI and below PMFSH Past Medical History Medical History Chronic back pain Bronchitis Pneumonia Diabetes High cholesterol History of high blood pressure Surgical History Surgical History H/O tubal ligation History of hysterectomy Family History Family History Mother Family history non-contributory Social History Social History Smoking packs per day: 0.3 Smoking cigarettes per day: 6.0 Smoking status: Current every day smoker Alcohol intake: current Alcohol use details: 1 drink per year Substance use: never Living arrangements: with family Gender identity (if verbalized by the patient): Female Comments At time of signature, agree with nursing past medical, surgical, social and family history. There is no relevant family history pertinent to the presenting complaint Exam Narrative: GENERAL: Well-appearing, well-nourished, and in no acute distress. HEAD: Normocephalic EYES: PERRLA, right sclera and conjunctiva injected with watery drainage noted, left mildly injected ENT: Nares clear, turbinates edematous and erythematous. Mucous membranes moist. TM pearly moss with dull light reflex bilaterally; no tragal tenderness. Oropharynx not erythematous without lesions. Tonsils not enlarged and without exudate, no drooling, no hoarseness, no trismus, uvula midline. NECK: Supple. No lymphadenopathy CHEST: Clear to auscultation, breath sounds equal. No wheezing, rhonchi, rales, or stridor. No respiratory distress, speaks in full sentences. HEART: Regular rate and rhythm. No murmur heard. SKIN: Warm, dry, no rash. NEURO: Alert and oriented x3. PSYCH: Normal mood and affect Course Course Emergency Course: Patient is aware of diagnosis, understands and agrees to treatment plan. Anticipatory guidance given. Patient agrees to follow-up as directed and is aware of reasons to seek care at the emergency department. Portions of this record may have been created with voice recognition software Level of Care: Express Care Visit Vital Signs Vital signs: Vital Signs Temperature 98.1 F 02/07/25 10:26 Pulse Rate 70 02/07/25 10:26 Respiratory Rate 20 02/07/25 10:26 Blood Pressure 124/60 02/07/25 10:26 Pulse Oximetry 96 02/07/25 10:26 Oxygen Delivery Room Air 02/07/25 10:26 Temperature 98.1 F 02/07/25 10:26 Pulse Rate 70 02/07/25 10:26 Respiratory Rate 20 02/07/25 10:26 Blood Pressure 124/60 02/07/25 10:26 Pulse Oximetry 96 02/07/25 10:26 Oxygen Delivery Room Air 02/07/25 10:26 Reviewed. MDM - URI/Sore Throat MDM Narrative Medical decision making narrative: Differential diagnosis considered: Matos virus, strep pharyngitis, allergic rhinitis, upper respiratory tract infection, sinusitis, rhinosinusitis, nasopharyngitis. viral pharyngitis, otitis media, otitis externa, pneumonia, bronchitis, viral cough syndrome, viral syndrome, and influenza. Exam findings show no acute concerns or changes; patient is non-toxic appearing and is in no distress. Patient is appropriate for outpatient treatment and follow-up. Lab Data Attestation: I reviewed the patient's lab results. Critical Care Time Critical Care Time Critical Care Time: No Discharge Plan Discharge Clinical Impression: Sinusitis, Conjunctivitis Patient Disposition: Home Condition: Stable Instructions: Antibiotic Form, Sinusitis (ED) Additional Instructions: Take medication as directed Nonprescription pain medications, such as acetaminophen (eg, Tylenol) or ibuprofen (eg, Motrin, Advil), are recommended for pain. Flushing the nose and sinuses with a saline solution several times per day has been proven to decrease pain associated with congestion and shorten the duration of symptoms. Nasal steroids (such as Flonase, 2 sprays in each nostril daily) can help to reduce swelling inside the nose, usually within two to three days. These drugs have few side effects and relieve symptoms in most people. Oral decongestants (pseudoephedrine and phenylephrine) may be helpful if you have associated symptoms of ear pain or fullness. Nasal decongestant sprays, including oxymetazoline (Afrin) and phenylephrine (Harinder-Synephrine), can be used to temporarily treat congestion. However, these sprays should not be used for more than two to three days due to the risk of rebound congestion (when the nose becomes congested constantly unless the medication is used repeatedly), possible addiction, and long-term consequences of frequent use, including persistent nasal dryness and crusting, which is very difficult to treat once it has developed. Medications to thin secretions (such as guaifenesin) may help to clear mucus. Please follow-up with your primary care doctor in the next 1-2 days. If you cannot follow-up with your primary care doctor please go to the ED for any urgent issues. If you have any worsening of symptoms or any other concerns please go to the ED immediately. Patient Language: Ukrainian Prescriptions: New pseudoephedrine HCl [12 Hour Decongestant] 120 mg tablet extended release 120 mg PO Q12H PRN (Reason: nasal congestion) Qty: 20 0RF amoxicillin-pot clavulanate 875-125 mg tablet 1 tablet PO Q12H 10 Days Qty: 20 0RF polymyxin B sulf-trimethoprim 10,000 unit- 1 mg/mL drops 1 drp EACH EYE Q3H 7 Days Qty: 10 0RF Rx Instructions: while awake; do not exceed 6 doses in 24 hours No Action cyclobenzaprine 10 mg tablet 10 mg PO BID atenolol 25 mg tablet 25 mg PO DAILY trazodone 50 mg tablet 50 mg PO HS lisinopril 10 mg tablet 10 mg PO DAILY rosuvastatin 10 mg tablet 10 mg PO DAILY metformin 500 mg tablet 1,000 mg PO BID Qvar RediHaler 80 mcg/actuation HFA aerosol breath activated 2 inh inhalation Q12H Qty: 10.6 0RF albuterol sulfate [Ventolin HFA] 90 mcg/actuation HFA aerosol inhaler 2 puff inhalation QID PRN (Reason: shortness of breath or wheezing) Qty: 6.7 0RF aspirin [Adult Low Dose Aspirin] 81 mg tablet,delayed release (DR/EC) 81 mg PO DAILY magnesium chloride PO vitamin B complex PO cholecalciferol (vitamin D3) PO multivitamin [Daily Multi-Vitamin] Tablet 1 tablet PO DAILY Follow-up/Referrals: Patti Gagnon, RN [Primary Care Provider] - Stand Alone Forms: Work/School Release IP Time of Disposition: 11:19
== END 2025-02-07 11:29 | disposition home or self-care (01) ==
PROVIDERS: Emergency Provider Nurse Practitioner
DX: J32.9 Chronic sinusitis, unspecified (principal); H10.9 Unspecified conjunctivitis; E11.9 Type 2 diabetes mellitus without complications; F17.210 Nicotine dependence, cigarettes, uncomplicated
CPT/HCPCS: 99213; G0463

== ENCOUNTER 2025-06-07 10:46 | Emergency (ER) | payer MEDICARE, SELFPAY ==
[2025-06-07 10:51] VITALS: BP 96/69; PULSE 81; RESP 16; TEMP 36.9; O2SAT 96
[2025-06-07 12:07] LABS: EDSTREPNEGPOS1 Negative (Negative)
[2025-06-07 12:20] LABS: EDCOVIDSCREEN Negative (Negative); EDINFLUASCREEN Negative (Negative); EDINFLUBSCREEN Negative (Negative)
--- OUTSIDE RECORDS SUMMARY | 2025-06-07 12:30 | XMS_ITS | Clinical Summary ---
Author Organization [facility] Address [address] [place] [address] Care Team Providers Care Forest Management Professor Name Role Phone Kirit Francis MD Primary Care Provider [phone] [facility],non-owned Affiliates and Associated Physician Practices is amultiple site organization consisting of ambulatory clinics and hospital sitesin [place], [place], [place] and [place]. This disclosure is being madepursuant to the Care Everywhere program and may not contain all information available regarding this patient. Last updated 18.[facility] Allergies Active Allergy Reactions Criticality Noted Date Comments Contrast-Iodinated Agents For Ct/Other Urticaria 06/12/2015 Prednisone Psychiatric 06/12/2015 Sulfa Drugs Urticaria 06/12/2015 Medications * Be aware that medications may not be up to date on this document. Alwaysverify current medications with the patient. vitamin D, ergocalciferol, (DRISDOL) 02005 UNITS capsule Take 50,000 Units by mouth every 7 days 2 03/27/2015 Active buPROPion SR 12hr (WELLBUTRIN-SR) 150 MG tablet Take 150 mg by mouth 3 times daily 2 06/05/2015 Active clonazePAM (KLONOPIN) 0.5 MG tablet Take 0.25 mg by mouth 3 times daily 06/06/2015 Active DULoxetine (CYMBALTA) 60 MG capsule Take 60 mg by mouth once daily 1 04/03/2015 Active lisinopril-hydr ochlorothiazide (PRINZIDE; ZESTORETIC) 20-12.5 MG tablet Take 1 Tab by mouth once daily 3 06/05/2015 Active metFORMIN (GLUCOPHAGE) 500 MG tablet Take 1,000 mg by mouth 2 times daily with morning and evening meal MORNING AND EVENING MEALS 3 05/14/2015 Active CRESTOR 5 MG tablet Take 5 mg by mouth once daily 3 06/04/2015 Active busPIRone (BUSPAR) 15 MG tablet Take 15 mg by mouth 2 times daily Active tiZANidine (ZANAFLEX) 2 MG tablet Take 2 mg by mouth at bedtime 5 08/30/2015 Active traZODone (DESYREL) 50 MG tablet Take 50 mg by mouth at bedtime 09/10/2015 Active LYRICA 25 MG capsule TAKE 1 CAPSULE BY MOUTH EVERY MORNING FOR 14 DAYS THEN INCREASE TO 2 CAPSULES BY MOUTH EVERY MORNING 0 03/01/2016 Active carisoprodol (SOMA) 350 MG tablet TAKE 1 TABLET BY MOUTH AT BEDTIME. DO NOT TAKE WITH ZANAFLEX (TIZANIDINE) 0 02/27/2016 Active Active Problems Problem Noted Date Diagnosed Date Chronic painful diabetic neuropathy 04/07/2016 Family History Medical History Relation Name Comments Alcohol abuse Father Cancer Father kidney Dementia Father Heart Failure Father 3 Hypertension Father Stroke Father Drug Abuse Mother Heart Failure Mother Hypertension Mother Cancer Sister breast Hypertension Sister Relation Name Status Comments Father Mother Sister Social History Tobacco Use Types Packs/Day Years Used Date Smoking Tobacco: Every Day Cigarettes 0.5 42 Smokeless Tobacco: Never Alcohol Use Standard Drinks/Week Comments No 0 (1 standard drink = 0.6 oz pur e alcohol) Comments Unknown Sex and Gender Information Value Date Recorded Sex Assigned at Not on file Legal Sex Female 1:13 PM CDT Gender Identity Not on file Sexual Orientation Not on file Last Filed Vital Signs Vital Sign Reading Time Taken Comments Blood Pressure 126/74 03/13/2016 1:49 PM CDT Pulse - - Temperature - - Respiratory Rate - - Oxygen Saturation - - Inhaled Oxygen Concentration - - Weight 79.4 kg (175 lb) 03/13/2016 1:49 PM CDT Height 167.6 cm (5' 6) 03/13/2016 1:49 PM CDT Body Mass Index 28.25 03/13/2016 1:49 PM CDT Plan of Treatment Health Maintenance Due Date Last Done Comments BONE DENSITY TESTING 1960 COLOGUARD (AGES 45-75) - COL ON CA SCREENING 1958 COLON MONITORING 1958 COLONOSCOPY - COLON CA SCREENING 1958 CT COLONOGRAPHY - COLON CA SCREENING 1958 Colorectal Cancer Screening 1958 FIT - COLON CA SCREENING 1958 FLEX SIG - COLON CA SCREENING 1958 MAMMOGRAM 1958 HEPATITIS C SCREENING 04/25/1976 DTAP/TDAP/TD VACCINES (1 - Tdap) 1977 PNEUMOCOCCAL VACCINE 50+ (1 of 2 - PCV) 1977 ZOSTER VACCINE (1 of 2) 2008 Respiratory Syncytial Virus (RSV) Vaccine Pt: or over 60 yrs (1 - Risk 60-74 years 1-dose series) 2018 DEPRESSION SCREENING 08/11/2024 COVID-19 VACCINE (1 - 2023-2 5 season) 2025 INFLUENZA VACCINE (#1) 2025 HEPATITIS B VACCINE Aged Out No longe r eligible based on patient's age to complete this topic HIB VACCINE Aged Out No longer eligi ble based on patient's age to complete this topic HPV VACCINE Aged Out No longer eligi ble based on patient's age to complete this topic MENINGOCOCCAL (Group B) VACC INE SHARED DECISION-MAKING Aged Out No longer eligibl e based on patient's age to complete this topic MENINGOCOCCAL GROUPS A/C/Y/W VACCINE Aged Out No longer eligible b ased on patient's age to complete this topic Insurance [facility] Care Teams Forest Management Professor Relationship Specialty Start Date End Date Kirit Francis MD [address] [place] [address] PCP - General Internal Medicine 06/12/15
--- OUTSIDE RECORDS SUMMARY | 2025-06-07 12:30 | XMS_ITS | Patient Health Record ---
Author Organization [facility] Address [address] [facility] [address] [place] [address] Care Team Providers Care Shift Boss Name Role Phone Charles Lucas Unavailable [phone] Dominguez Menendezime Unavailable [phone] Allergies Allergen (clinical drug ingredient) Drug/Non Drug Allergy documented on EMR Reaction Allergy Type Onset Date Status primidone Mysoline Unknown Drug Allergy Active Substance with sulfonamide structure and antibacterial mechanism of action (substance) Sulfa Antibiotics Unknown Drug Allergy Active Reason For Referral No Information Medications Medication SIG (Take, Route, Frequency, Duration) Notes Start Date End Date Status Varenicline Tartrate 1 MG Tablet Take 1 tablet by mouth twice daily; Duration: 30 Active Magnesium - Capsule as directed Orally Active DULoxetine HCl 30 MG Capsule Delayed Release Particles 1 capsule Orally Once a day; Duration: 14 days 03/11/2024 Active Vitamin B Complex - Tablet 1 tablet Orally daily 0 03/11/2024 Active DULoxetine HCl 60 MG Capsule Delayed Release Particles 1 capsule Orally Once a day; Duration: 90 days Active Multivitamin - Tablet 1 tablet Orally On 03/11/2024 Active Cyclobenzaprine HCl 10 MG Tablet TAKE 1 TABLET BY MOUTH TWICE DAILY Oral; Duration: 30 Days Active Vitamin D 25 MCG (1000 UT) Tablet 1 tablet Orally Once a day Active Rosuvastatin Calcium 10 MG Tablet TAKE 1 TABLET BY MOUTH ONCE DAILY Oral; Duration: 90 Days Active Atenolol 25 MG Tablet TAKE 1 TABLET BY M OUTH ONCE DAILY Oral; Duration: 30 Days Active metFORMIN HCl 500 MG Tablet TAKE 2 TABLE TS BY MOUTH TWICE DAILY (WITH MORNING MEAL AND WITH EVENING MEAL) Oral; Duration: 30 Days Active Lisinopril 10 MG Tablet Oral; Duration: 90 Days Active buPROPion HCl ER (XL) 150 MG Tablet Extended Release 24 Hour 1 tablet in the morning Orally Once a day; Duration: 90 days Active traZODone HCl 50 MG Tablet Oral; Duration: 30 Days Active ZyrTEC 10 MG Tablet Chewable 1 tablet Or ally Once a day 03/11/2024 Active Aspirin Adult Low Dose 81 MG Tablet Delayed Release 1 tablet Orally Once a day 03/11/2024 Active Immunizations Vaccine Route Administration Date Status Comme nts Influenza virus vaccine, quadrivalent (IIV4), split virus, 0.25 mL dosage Unknown 07/11/2020 Administered Influenza, injectable, MDCK, preservative free Unknown 07/11/2020 Administered Social History Tobacco Use: Social History Observation Description Date Details (start date - stop date) Current Smoker NA - NA Sex Assigned At : Social History Observation Description Sex Assigned At Female Social History Miscellaneous: Social Info Question Answer Notes Safety issues: Are there any firearms in the house? No Social History Social Info Question Answer Notes Household: Marital Status: Number of Adults in household: 3 Number of Children in Household: 0 Level of Education: Professional Schools/Masters /PhD Drug/Alcohol: Social Info Question Answer Notes Drugs Have you used drugs other than those for medical reasons in the past 12 months? No AUDIT-C (Standard) Did you have a drink containing alcohol in the past year? No Points 0 Interpretation Negative Tobacco Use: Social Info Question Answer Notes Tobacco Control (Standard) Tobacco use: Current smoker How often do you smoke cigarettes? Every day How many cigarettes a day do you smoke? 6-10 How soon after you wake up do you smoke your first cigarette? 31-60 minutes Are you interested in quitting? Thinking about quitting Additional Details Category Social Info Options Details Miscellaneous: Occupation: CLINICAL TRIALS NURSE Problems Problem Type SNOMED Code ICD Code Onset Dates Problem Status W/U Status Risk Notes Problem Severe recurrent major depression without psychotic features (86748803) Major depressive disorder, recurrent severe without psychotic features (F33.2) Active confirmed Problem Generalized anxiety disorder (69863544) Generalized anxiety disorder (F41.1) Active confirmed Problem Insomnia disorder related to another mental disorder (08877128) Insomnia due to other mental disorder (F51.05) Active confirmed Problem Mental disorder (03984698) Mental disorder, not otherwise specified (F99) Active confirmed Problem Mild recurrent major depression (02316825) Depression, major, recurrent, mild (F33.0) Active confirmed Problem Current smoker (70798738) Current smoker (F17.200) Active confirmed Encounters Encounter Location Date Provider Diagnosis [facility] [address] [place] [address] 06/14/2024 Raffi Menendez Current smoker F17.2 00 [facility] [address] [place] [address] 06/15/2024 Charles Shayy Current smoker F17.2 00 [facility] [address] [place] [address] 06/16/2024 Charles Shayy Current smoker F17.[address] [facility] [address] [place] [address] 06/18/2024 Charles Shayy Current smoker F17.[address] [facility] [address] [place] [address] 06/21/2024 Charles Shayy Current smoker F17.[address] [facility] [address] [place] [address] 06/22/2024 Charles Shayy Current smoker F17.[address] [facility] [address] [place] [address] 06/23/2024 Charles Shayy Current smoker F17.2 00 [facility] [address] [place] [address] 06/24/2024 Charles Shayy Current smoker F17.[address] [facility] [address] [place] [address] 06/25/2024 Charles Shayy Current smoker F17.[address] [facility] [address] [place] [address] 06/28/2024 Charles Shayy Current smoker F17.[address] [facility] [address] [place] [address] 06/29/2024 Charles Shayy Current smoker F17.[address] [facility] [address] [place] [address] 06/30/2024 Charles Shayy Current smoker F17.[address] [facility] [address] [place] [address] 07/01/2024 Charles Shayy Current smoker F17.2 00 [facility] [address] [place] [address] 07/02/2024 Charles Shayy Current smoker F17.2 00 [place] [address] [place] [address] 07/05/2024 Charles Shayy Current smoker F17.2 00 [facility] [address] [place] [address] 07/14/2024 Charles Shayy Current smoker F17.2 00 [facility] [address] [place] [address] 07/22/2024 Charles Shayy Current smoker F17.2 00 [facility] [address] [place] [address] 07/30/2024 Charles Shayy Major depressive disorder, recurrent severe without psychotic features F33.2 [place] [address] [place] [address] 07/25/2024 Raffi Menendez Cigarette nicotine dependence without complication F17.210 [facility] [address] [place] [address] 11/12/2024 Charles Shayy Depression, major, recurrent, mild F33.0 [place] [address] [place] [address] 11/29/2024 Charles Shayy Urinary tract infection, site not specified N39.0 Assessments Encounter Date Diagnosis (ICD Code) Assessment Notes Treatment Notes Treatment Clinical Notes Section Notes 11/12/2024 Depression, major, recurrent, mild (ICD-10 - F33.0) 11/29/2024 Urinary tract infection, site not specified (ICD-10 - N39.0) 06/14/2024 Current smoker (ICD-10 - F17.200) 06/15/2024 Current smoker (ICD-10 - F17.200) 06/16/2024 Current smoker (ICD-10 - F17.200) 06/18/2024 Current smoker (ICD-10 - F17.200) 06/21/2024 Current smoker (ICD-10 - F17.200) 06/22/2024 Current smoker (ICD-10 - F17.200) 06/23/2024 Current smoker (ICD-10 - F17.200) 06/24/2024 Current smoker (ICD-10 - F17.200) 06/25/2024 Current smoker (ICD-10 - F17.200) 06/28/2024 Current smoker (ICD-10 - F17.200) 06/29/2024 Current smoker (ICD-10 - F17.200) 06/30/2024 Current smoker (ICD-10 - F17.200) 07/01/2024 Current smoker (ICD-10 - F17.200) 07/02/2024 Current smoker (ICD-10 - F17.200) 07/05/2024 Current smoker (ICD-10 - F17.200) 07/14/2024 Current smoker (ICD-10 - F17.200) 07/22/2024 Current smoker (ICD-10 - F17.200) 07/25/2024 Cigarette nicotine dependence without complication (ICD-10 - F17.210) 07/30/2024 Major depressive disorder, recurrent severe without psychotic features (ICD-10 - F33.2) Plan Of Treatment Pending Test Test Name Order Date TMS MT Maping 05/27/2024 Medical (General) History Medical History History ICD Code Past Psychiatric History: An xiety Disorder,Panic Disorder,PTSD,Major Depressive Episode abdominal aortic aneurysm: No atrial fibrillation: No chronic fatigue syndrome: No essential tremor: No hyperlipidemia: Yes hypertension: Yes Parkinson's disease: No restless leg syndrome: No stroke: No subdural hematoma: No type 1 diabetes mellitus: No type 2 diabetes mellitus: Yes vitamin B12 deficiency: No vitamin D deficiency: No Surgical History Surgery Date(Month/Year) tubal ligation tonsillectomy sinus surgery ablation of uterus hysterectomy
--- OUTSIDE RECORDS SUMMARY | 2025-06-07 12:31 | XMS_ITS | Clinical Summary ---
Author Organization [facility] Address [address] [place] [address] Phone Care Team Providers Care Python Engineer Name Role Phone Kirit Francis MD Primary Care Provider [phone] Allergies Active Allergy Reactions Criticality Noted Date Comments Iodinated Contrast Media Rash 03/11/2017 Sulfa Antibiotics Rash 03/11/2017 Medications lisinopril-hydro CHLOROthiazide (PRINZIDE, ZESTORETIC) 20-12.5 MG Tablet Take 1 Tab by mouth daily. Active DULoxetine (CYMBALTA) [address] Particles Take 120 mg by mouth daily. Active metFORMIN (GLUCOPHAGE) 1000 MG Tablet Take 1,000 mg by mouth 2 times daily (with meals). Active buPROPion (WELLBUTRIN XL) 300 MG TABLET SR 24 HR XL tablet Take 300 mg by mouth every morning. Active buPROPion (WELLBUTRIN XL) 150 MG XL tablet Take 150 mg by mouth daily. Active Rosuvastatin Calcium (CRESTOR PO) Take 1 Tab by mouth. Active traZODone (DESYREL) 50 MG Tablet Take 50 mg by mouth nightly. Active cetirizine (ZYRTEC) 10 MG Tablet Take 10 mg by mouth nightly. Active Family History Medical History Relation Name Comments Breast Cancer Maternal Aunt Breast Cancer Paternal Aunt Breast Cancer Paternal Grandmother Breast Cancer Sister Relation Name Status Comments Maternal Aunt Paternal Aunt Paternal Grandmother Sister Social History Tobacco Use Types Packs/Day Years Used Date Smoking Tobacco: Every Day Alcohol Use Standard Drinks/Week Comments Yes 0 (1 standard drink = 0.6 oz pur e alcohol) once or twice per year Comments No Sex and Gender Information Value Date Recorded Sex Assigned at Not on file Legal Sex Female 9:51 PM CDT Gender Identity Not on file Sexual Orientation Not on file Last Filed Vital Signs Vital Sign Reading Time Taken Comments Blood Pressure 88/63 03/11/2017 1:15 PM CDT Pulse 88 03/11/2017 1:15 PM CDT Temperature - - Respiratory Rate 22 03/11/2017 1:15 PM CDT Oxygen Saturation 96% 03/11/2017 1:15 PM CDT Inhaled Oxygen Concentration - - Weight 76.7 kg (169 lb) 03/11/2017 11:06 AM CDT Height 167.6 cm (5' 6) 03/11/2017 11:06 AM CDT Body Mass Index 27.28 03/11/2017 11:06 AM CDT Plan of Treatment Health Maintenance Due Date Last Done Comments DEXA Bone Density 1960 Hepatitis C Virus (HCV) Screening 1960 Cologuard 2003 Colonoscopy 2003 Colorectal Cancer Screening 2003 Immunochemical Fecal Occult Blood 2003 Medicare Initial AWV [id number] 08/11/2024 Influenza Immunization (#1) 04/11/202501/2024, 04/29/2023, 05/25/2022, Additional history exists SARS-COV-2 Immunization ( season) 2025 07/03/2024, 12/05/2023, 05/24/2023, Additional history exists Mammogram 07/17/2025 07/17/2024, 10/09, 11/07/2015 Zoster Immunization Completed 08/09/2022, 05/25/2022, 04/22/2018, Additional history exists Respiratory Syncytial Virus (RSV) Immunization (Adult) Completed 05/24/2023 DTaP/Tdap/Td Immunization Discontinued 2023, 10/22/2013, 08/11/2013 TdaP Immunization Completed 09/04/2023, , 08/11/2013 Pneumococcal Immunization (50+ years) Completed 12/04/2023, 08/31/2015 Pneumococcal Immunization Combined Discontinued 12/04/2023, 08/31/2015 Hepatitis B Immunization Aged Out No longer eligible based on patient's age to complete this topic Human Papillomavirus (HPV) Immunization Aged Out No longer eligible based on patient's age to complete this topic Meningococcal Immunization (ACWY) Aged Out No longer eligible based on patient's age to complete this topic Rotavirus Immunization Aged Out No lo nger eligible based on patient's age to complete this topic Procedures Procedure Name Priority Date/Time Associated Diagnosis Comments RUFUS SCREENING BILATERAL DIGITAL W CAD W DARSHANA Routine 07/17/2024 10:53 AM [facility] Encounter for screening mammogram for malignant neoplasm of breast from Last 3 Months or Most Recently Relevant to Health Maintenance Results * RUFUS SCREENING BILATERAL DIGITAL W CAD W DARSHANA (07/17/2024 10:53 AM [facility]) Anatomical Region Laterality Modality breast Bilateral Mammography 07/17/2024 10:4 0 AM [facility] Narrative 07/19/2024 8:19 AM [facility] - RUFUS SCREENING BILATERAL DIGITAL W CAD W DARSHANA BILATERAL DIGITAL SCREENING MAMMOGRAM 3D/2D WITH CAD WITH MEDIOLATERAL OBLIQUE CRANIOCAUDAL: 07/17/2024 The study was acquired using digital technology and interpreted from soft copy. Current study was also evaluated with ICAD version 7.2. 2D digital mammographic views, as well as 3D digital tomosynthesis were performed in the CC and MLO projections. CLINICAL: Routine screening. Patient has no complaints. No personal history of cancer. Mother with premenopausal breast cancer. Paternal grandmother and aunt had breast cancer. Maternal aunt had breast cancer. COMPARISONS: Comparison is made to exams dated: 10/20/2021, 11/07/2015, and 12/03/2013 [facility]. BREAST TISSUE:The breasts are heterogeneously dense, which may obscure small masses. FINDINGS: There are benign calcifications in the right breast. No significant masses, calcifications, or other findings are seen in either breast. There has been no significant interval change. IMPRESSION: BENIGN There is no mammographic evidence of malignancy. A 1 year screening mammogram is recommended. A letter will be sent to the patient with these results. The patient will be entered into a reminder system with a target due date of 1 year for her next screening exam. Electronically signed by: Pipe rider/penrad:07/18/2024 20:41:29 Dye Operator(s): SHELBY MichaelR)(M), [facility] letter sent: Normal Exam Reading location: [facility] Mammogram BI-RADS: Category 2: Benign Procedure Note Pipe Peace MD - 07/19/2024 - RUFUS SCREENING BILATERAL DIGITAL W CAD W DARSHANA BILATERAL DIGITAL SCREENING MAMMOGRAM 3D/2D WITH CAD WITH MEDIOLATERAL OBLIQUE CRANIOCAUDAL: 07/17/2024 The study was acquired using digital technology and interpreted from soft copy. Current study was also evaluated with [employer] International[employer] version 7.2. 2D digital mammographic views, as well as 3D digital tomosynthesis were performed in the CC and MLO projections. CLINICAL: Routine screening. Patient has no complaints. No personal history of cancer. Mother with premenopausal breast cancer. Paternal grandmother and aunt had breast cancer. Maternal aunt had breast cancer. COMPARISONS: Comparison is made to exams dated: 10/20/2021, 11/07/2015, and 12/03/2013 [facility]. BREAST TISSUE:The breasts are heterogeneously dense, which may obscure small masses. FINDINGS: There are benign calcifications in the right breast. No significant masses, calcifications, or other findings are seen in either breast. There has been no significant interval change. IMPRESSION: BENIGN There is no mammographic evidence of malignancy. A 1 year screening mammogram is recommended. A letter will be sent to the patient with these results. The patient will be entered into a reminder system with a target due date of 1 year for her next screening exam. Electronically signed by: Pipe rider/heenarad:07/18/2024 20:41:29 Dye Operator(s): RT Alec(R)(M), [facility] letter sent: Normal Exam Reading location: [facility] Mammogram BI-RADS: Category 2: Benign us Kirit Francis MD IMG MAMMO ORDERABLES Final Re sult from Last 3 Months or Most Recently Relevant to Health Maintenance Insurance MEDICARE C [facility] Care Teams Python Engineer Relationship Specialty Start Date End Date Kirit Francis MD [address] [place] [address] PCP - General Internal Medicine 10/11/15
--- NOTE | 2025-06-07 12:36 | ED.URI ---
HPI - URI/Sore Throat General Chief Complaint: Upper Respiratory Infection Stated Complaint: Sinus Problem/Nausea/Sore Throat Time Seen by Provider: 06/07/25 12:15 Source: patient and RN notes reviewed Mode of arrival: ambulatory Limitations: no limitations History of Present Illness HPI Narrative: 65-year-old female presents Express Care complaining of upper respiratory symptoms for approximately 5 days. Patient reports cough, congestion, sinus pressure, nasal drainage, chills, nausea. Patient denies any fevers, body aches, abdominal pain, vomiting, diarrhea, chest pain, difficulty breathing, any other upper respiratory symptoms or any other symptoms. Pain patient has been taking [id number] cold/flu medication the name relief. The today she will be up with worsening symptoms. Patient reports a history of diabetes and hypertension. Related Data Home Medications ?Medication ?Instructions ?Recorded ?Confirmed ?Last Taken ?Type atenolol 25 mg tablet 25 mg PO DAILY 07/24/23 06/07/25 Unknown History cyclobenzaprine 10 mg tablet 10 mg PO BID 07/24/23 06/07/25 Unknown History lisinopril 10 mg tablet 10 mg PO DAILY 07/24/23 06/07/25 Unknown History rosuvastatin 10 mg tablet 10 mg PO DAILY 07/24/23 06/07/25 Unknown History trazodone 50 mg tablet 50 mg PO HS 07/24/23 06/07/25 Unknown History aspirin 81 mg tablet,delayed 81 mg PO DAILY 08/12/23 06/07/25 Unknown History release (Adult Low Dose Aspirin) cholecalciferol (vitamin D3) PO 08/12/23 09/01/24 Unknown History metformin 500 mg tablet 1,000 mg PO BID 08/12/23 06/07/25 Unknown History multivitamin (Daily Multi-Vitamin 1 tablet PO DAILY 08/12/23 06/07/25 Unknown History tablet) vitamin B complex PO 08/12/23 09/01/24 Unknown History semaglutide 0.25 mg or 0.5 mg (2 mg subcut 06/07/25 Unknown History mg/3 mL) subcutaneous pen injector (Ozempic) Allergies Allergy/AdvReac Type Severity Reaction Status Date / Time prednisone Allergy Severe SUICIDAL Verified 06/07/25 10:49 Sulfa (Sulfonamide Allergy Mild Rash Verified 06/07/25 10:49 Antibiotics) iodine Allergy Unknown RASH, Verified 06/07/25 10:49 ITCHEY doxycycline Allergy Rash Verified 06/07/25 10:49 Review of Systems Review of Systems: CONSTITUTIONAL: Denies fever, body aches, or sweats. Positive for chills. EYES: Denies visual changes, redness, or discharge. ENT: Positive for sinus pressure, congestion, postnasal drip,. Negative for rhinorrhea, sore throat, or otalgia. CARDIOVASCULAR: Denies chest pain, palpitations, or edema. RESPIRATORY: Positive for cough. Negative for dyspnea or wheezing. GASTROINTESTINAL: Denies abdominal pain, vomiting, or diarrhea. Positive for nausea. GENITOURINARY: Denies dysuria or hematuria. SKIN: Denies rash or itching. MUSCULOSKELETAL: Denies back pain, joint pain, or myalgia. NEUROLOGIC: Denies headache, numbness, or weakness. PSYCHIATRIC: Denies anxiety or depression. All other systems reviewed are negative, except as documented in HPI. [facility] Past Medical History Medical History Chronic back pain Bronchitis Pneumonia Diabetes High cholesterol History of high blood pressure Surgical History Surgical History H/O tubal ligation History of hysterectomy Family History Family History Mother Family history non-contributory Social History Social History Smoking packs per day: 0.3 Smoking cigarettes per day: 6.0 Smoking status: Current every day smoker Alcohol intake: current Alcohol use details: 1 drink per year Substance use: never Living arrangements: with family Gender identity (if verbalized by the patient): Female Comments At the time of my signature, I reviewed and agree with the nursing past medical, surgical, social, and family history. There is no relevant family history pertinent to the patient complaint. Exam Narrative: GENERAL: This is a well-nourished, well-developed adult, in no apparent distress. They are non ill-appearing, nontoxic appearing. HEAD: normocephalic, atraumatic. EYES: Sclera clear/white. Vision is grossly intact. Conjunctiva normal bilaterally. Extraocular movements intact. EARS: External ears normal, auditory canals clear and without drainage, TMs without erythema or perforation. Hearing grossly intact. NOSE: External nose normal with no obvious nasal discharge, nasal turbinates erythematous with exudate, no rhinorrhea. Maxillary sinus tenderness to palpation. THROAT: Mucous membranes moist, posterior pharynx erythematous without exudate. Uvula is midline. Postnasal drip present. NECK: Neck supple, mild cervical lymphadenopathy, no masses or thyromegaly. CARDIOVASCULAR: Regular rate and rhythm without murmurs, gallops, or rubs. RESPIRATORY: Clear to auscultation. Breath sounds equal bilaterally. No wheezes, rales, or rhonchi. SKIN: warm, Dry, intact with no suspicious lesions or rash, good texture and turgor. NEURO: awake, alert, and oriented to person, place and time. There were no obvious focal neurologic abnormalities. EXTREMITIES: No joint tenderness, effusion, or edema noted. BACK: Nontender without deformity. Course Course Emergency Course: Portions of this record may have been created with voice recognition software Level of Care: Express Care Visit Vital Signs Vital signs: Vital Signs Temperature 98.4 F 06/07/25 10:51 Pulse Rate 81 06/07/25 10:51 Respiratory Rate 16 06/07/25 10:51 Blood Pressure 96/69 L 06/07/25 10:51 Pulse Oximetry 96 06/07/25 10:51 Oxygen Delivery Room Air 06/07/25 10:51 Temperature 98.4 F 06/07/25 10:51 Pulse Rate 81 06/07/25 10:51 Respiratory Rate 16 06/07/25 10:51 Blood Pressure 96/69 L 06/07/25 10:51 Pulse Oximetry 96 06/07/25 10:51 Oxygen Delivery Room Air 06/07/25 10:51 MDM - URI/Sore Throat MDM Narrative Medical decision making narrative: Rapid COVID, flu, strep were negative. A throat culture is pending. Given patient sign worsening of symptoms and history of diabetes likely she has developed a bacterial sinusitis. Will treat with Augmentin. Discussed physical exam findings. Advised supportive measures and signs/symptoms to go to the ER. Pt is appropriate for outpt treatment and f/u. Differential Diagnosis Differential diagnosis: Likely upper respiratory infection, sinusitis, viral infection and pharyngitis Lab Data Attestation: I reviewed the patient's lab results. Labs: Lab Results 06/07/25 Range/Units 11:56 POC Influenza A Ag Negative (Negative) POC Influenza B Ag Negative (Negative) POC SARS CoV-2 Ag Negative (Negative) POC Grp A Strep Screen Negative (Negative) Discharge Plan Discharge Clinical Impression: Sinusitis Qualifiers: Sinusitis location: unspecified location Chronicity: acute Recurrence: non-recurrent Qualified Code(s): J01.90 - Acute sinusitis, unspecified Patient Disposition: Home Condition: Stable Instructions: Antibiotic Form, Sinusitis (ED) Additional Instructions: Your rapid COVID, flu, strep were negative today. Take the antibiotics as directed and complete the course even if you start to feel better. You may use a Neti pot saline rinse 3 times a day with lukewarm distilled water Continue to take Tylenol or Motrin as needed for pain or fevers. Follow instructions on the bottle. Use a humidifier or vaporizer at night. Drink plenty of water. 8-10 glasses per day. Use flonase 2 times per day for 5 days then as needed Take mucinex 2 times per day and be sure to take with 8oz of water. Follow up with Primary provider in 3-5 days Please go to the ER if he develops any difficulty breathing, vomiting, chest pains, worsening symptoms, or any other concerns Patient Language: Welsh Prescriptions: New amoxicillin-pot clavulanate 875-125 mg tablet 1 tablet PO Q12H 7 Days Qty: 14 0RF No Action cyclobenzaprine 10 mg tablet 10 mg PO BID atenolol 25 mg tablet 25 mg PO DAILY trazodone 50 mg tablet 50 mg PO HS lisinopril 10 mg tablet 10 mg PO DAILY rosuvastatin 10 mg tablet 10 mg PO DAILY metformin 500 mg tablet 1,000 mg PO BID albuterol sulfate [Ventolin HFA] 90 mcg/actuation HFA aerosol inhaler 2 puff inhalation QID PRN (Reason: shortness of breath or wheezing) Qty: 6.7 0RF Ozempic 0.25 mg or 0.5 mg (2 mg/3 mL) pen injector SUBCUT aspirin [Adult Low Dose Aspirin] 81 mg tablet,delayed release (DR/EC) 81 mg PO DAILY vitamin B complex PO cholecalciferol (vitamin D3) PO multivitamin [Daily Multi-Vitamin] Tablet 1 tablet PO DAILY Follow-up/Referrals: Kalin,Patti Hurt APRN [Primary Care Provider, Unknown] Stand Alone Forms: Work/School Release IP Time of Disposition: 12:34
== END 2025-06-07 12:40 | disposition home or self-care (01) ==
PROVIDERS: PCP Nurse Practitioner Family
DX: J01.90 Acute sinusitis, unspecified (principal); Z20.822 Contact with and (suspected) exposure to COVID-19; I10 Essential (primary) hypertension; E11.9 Type 2 diabetes mellitus without complications; Z79.84 Long term (current) use of oral hypoglycemic drugs; E78.00 Pure hypercholesterolemia, unspecified
CPT/HCPCS: 87081; 87426; 87804; 87880; 99213; G0463